=== PATIENT | male | born 1960 | race Hispanic/Latino ===

== ENCOUNTER → 2024-02-11 | Outpatient (REF) | payer BC | LOC: RAD 11:29 | PROVIDERS: ATTEND Internal Medicine | DX: J15.9 Unspecified bacterial pneumonia (principal); J41.0 Simple chronic bronchitis | CPT/HCPCS: 71046 ==

== ENCOUNTER → 2024-06-15 | Outpatient (REF) | payer BC | LOC: EDSTATUS 13:00 → RESP 13:18 | PROVIDERS: ATTEND Internal Medicine | DX: J41.0 Simple chronic bronchitis (principal) | CPT/HCPCS: 94060; 94727; 94729 ==